=== PATIENT | male | born 1995 | race African-American/Black ===

== ENCOUNTER 2016-11-29 18:41 | Emergency (ER) | payer OTHER ==
[~2016-11-29] VITALS: Ht 167.6 cm; Wt 68.0 kg
[2016-11-29 18:45] VITALS: Ht 167.6 cm; Wt 68.0 kg
[2016-11-29] MEDS ORDERED: IBUPROFEN 200 MG TAB PO ONE (19:30)
--- NOTE | 2016-11-29 20:22 | RADRPT ---
PROCEDURE: US Scrotum. CLINICAL INDICATION: Scrotal palpable lesion. TECHNIQUE: Multiple sonographic images of the scrotal region were obtained utilizing a linear arra y transducer with grayscale and color-flow and pulsed Doppler imaging. The images were reviewed on a high-resolution PACS workstation. COMPARISON: No prior studies are available for comparison. FINDINGS: The right testis measures 4.2 93.1 x 2.6 cm. The left testis measures 4.3 x 2.3 x 3.0 cm. There is no intratesticular mass. There are benign right epididymal cysts measuring 1.7 cm and 0.9 cm. The epididymi are otherwise no rmal. In the superior lateral aspect of the right side of the scrotum there is an extratesticular heteroge neous mass measuring 1.5 x 1.3 x 2.5 cm. There is no other mass. There is normal flow to both testes demonstrated with color Doppler and pulsed Doppler sonography. There is no right hydrocele. There is a small left hydrocele. There is no varicocele. The scrotal wall is unremarkable. IMPRESSION: 1. Benign right epididymal cyst measuring 1.7 cm and 0.9 cm. 2. Heterogeneous extratesticular mass in the superior lateral aspect of the right side of the scrot um measuring 1.5 x 1.3 x 2.5 cm. Since this is extratesticular, it is probably benign. Differentia l diagnosis includes epididymal adenomatoid tumor and scrotal hematoma. Clinical correlation is adv ised. 3. Small left hydrocele. 4. Otherwise unremarkable study. RPTAT: QQ .Michael Daniels MD, Date Time Electronically viewed and signed by .Michael Daniels MD, MD on 11/29/2016 20:22 .R/
--- NOTE | 2016-11-29 20:49 | ERD ---
ER Documentation Chief Complaint Date/Time DATE: 11/29/16 TIME: 20:43 Chief Complaint Pt reports raised tender area to r groin HPI This pleasant 21-year-old male patient presents to emergency department today with complaint of right scrotal mass,. Patient reports mass is painful and is having difficulty ambulating, symptoms started 3-4 days ago and he has been using Neosporin several times a day for treatment. Patient reports history of abscess in the past treated without incision and drainage antibiotics and topical antibiotics. Patient reports that today's symptoms are worse, he denies any dysuria, testicular pain, ulcer or lesion draining purulent or bloody drainage. Patient has not tried warm compresses, denies nausea, vomiting , fever, chills, denies history of MRSA, or any comorbidities or immunosuppression.Today's pain is 8/10 on pain scale. ROS All systems reviewed and are negative except as per history of present illness. Medications Home Meds Active Scripts Ibuprofen* (Motrin*) 400 Mg Tab, 400 MG PO Q6, #30 TAB Prov:BRIAN,ROMEO 11/29/16 Clindamycin Hcl* (Cleocin*) 300 Mg Cap, 300 MG PO Q8 for 10 Days, #30 CAP Prov:BRIAN,ROMEO 11/29/16 Allergies Allergies: Coded Allergies: amoxicillin (Verified Allergy, Unknown, hives, 11/29/16) PMhx/Soc Medical and Surgical Hx: pt denies Medical Hx History of Surgery: Yes (keloid removal from ears) Anesthesia Reaction: No Hx Neurological Disorder: No Hx Respiratory Disorders: No Hx Cardiac Disorders: No Hx Psychiatric Problems: No Hx Miscellaneous Medical Probl: No Hx Alcohol Use: No Hx Substance Use: Yes (marijuana daily) Hx Tobacco Use: No Smoking Status: Current every day smoker Physical Exam Vitals Vital Signs Date Time Temp Pulse Resp B/P Pulse Ox O2 Delivery O2 Flow Rate FiO2 11/29/16 18:45 98.6 80 16 138/67 97 Vitals stable, triage notes reviewed Physical Exam Const: Well-appearing, well-nourished, well-hydrated, no acute Head: Atraumatic Eyes: Normal Conjunctiva, PERRLA, EOMI ENT: Normal External Ears, Nose and Mouth, mucous membranes moist Neck: Resp: Respirations even and unlabored, no respiratory distress Cardio: Abd: Soft, non tender, non distended. Normal bowel sounds Male genitalia: Right upper scrotal mass palpated, tender to palpation, with no spontaneous drainage to palpation. Mass measuring 2 cm x 1 cm. Testicles distended, circumcised, with no penile discharge, lesion, or ulcer. Skin: Back: Ext: Neur: Awake and alert Psych: Normal Mood and Affect Results 24 hrs Current Medications Medications (Trade) Dose Ordered Sig/Jassi Route PRN Reason Start Time Stop Time Status Last Admin Dose Admin Ibuprofen (Motrin) 400 mg ONCE ONCE PO 11/29/16 19:30 11/29/16 19:37 DC 11/29/16 20:17 Procedures/MDM PROCEDURE: US Scrotum. CLINICAL INDICATION: Scrotal palpable lesion. TECHNIQUE: Multiple sonographic images of the scrotal region were obtained utilizing a linear array transducer with grayscale and color-flow and pulsed Doppler imaging. The images were reviewed on a high-resolution PACS workstation. COMPARISON: No prior studies are available for comparison. FINDINGS: The right testis measures 4.2 93.1 x 2.6 cm. The left testis measures 4.3 x 2.3 x 3.0 cm. There is no intratesticular mass. There are benign right epididymal cysts measuring 1.7 cm and 0.9 cm. The epididymi are otherwise normal. In the superior lateral aspect of the right side of the scrotum there is an extratesticular heterogeneous mass measuring 1.5 x 1.3 x 2.5 cm. There is no other mass. There is normal flow to both testes demonstrated with color Doppler and pulsed Doppler sonography. There is no right hydrocele. There is a small left hydrocele. There is no varicocele. The scrotal wall is unremarkable. IMPRESSION: 1. Benign right epididymal cyst measuring 1.7 cm and 0.9 cm. 2. Heterogeneous extratesticular mass in the superior lateral aspect of the right side of the scrotum measuring 1.5 x 1.3 x 2.5 cm. Since this is extratesticular, it is probably benign. Differential diagnosis includes epididymal adenomatoid tumor and scrotal hematoma. Clinical correlation is advised. 3. Small left hydrocele. 4. Otherwise unremarkable study. Electronically viewed and signed by .Michael Daniels MD, on 11/29/2016 20:22 Procedure note Abscess Incision and Drainage by me: Location: superior lateral aspect of the right side of the scrotum there is an extratesticular heterogeneous mass measuring 1.5 x 1.3 x 2.5 cm Anesthesia: Local 1% Lidocaine without epinephrine Technique: Disrupted loculations w/ instrumentation Packin cm nonmedicated sterile packing Complications: Neurovascularly intact post procedure 48 hour wound check. Scar minimization instructions given. This 21-year-old male patient presents to emergency department for painful right scrotal mass. Patient has history of skin infection in the same location treated with antibiotics. Infected lymph node is not suspected. small abscess without cellulitis status post simple incision and drainage by myself see above. Wound packing with 2 cm nonmedicated packing. Patient's skin symptoms have stabilized while they have been evaluated in the department and are appropriate for outpatient care and work up. Exam and w/u not consistent w/ sepsis, deep space infection, or foreign body patient will be discharged home with clindamycin 300 mg 1 tab p.o. every 8 hours 10 days, Motrin for pain, return to emergency department in 48 hours for treatment reevaluation and packing removal, return to emergency department as needed for increased redness, pain, fever. I feel the patient is stable for discharge at this time. I have discussed results, examination findings, the treatment plan with the patient and family present prior to discharge. Indications for emergent reevaluation, side effects of medication were also discussed. All questions were answered. Patient verbalizes understanding and agrees with plan of care.. Departure Diagnosis: Primary Impression: Acute abscess Condition: Good Patient Instructions: Abscess, Incision And Drainage Additional Instructions: Thank you for for coming to [facility] for your care today. Please ask your nurse or provider if you have questions about your care today and do not leave until all your questions have been answered. Please use any medications given as directed and follow-up with your doctor (or the doctor you were referred to) in the next 2-3 days. If you do not have a primary care doctor you may [place] [facility] [place] ([place] You may also use motrin and tylenol as needed for fever and/or pain unless instructed otherwise by your provider or nurse. Indications for more urgent follow-up have been discussed, but you may return to the Emergency Department at ANY time for any worrisome or worsening symptoms. If you have abdominal pain, please know that no test or exam you received is perfect and you should follow up within 8 hours for continued pain. If you had any imaging studies today, such as an X-Ray or CT Scan, these studies will be reviewed later by a radiologist. You will be called if there are important findings that were not identified today, so make sure the contact information you provided at registration is correct. If you received any narcotic pain control medicine today, such as Vicodin, Morphine or Dilaudid, your coordination and judgment may be affected for a number of hours. Please do not drive or operate heavy machinery, and you may want someone to assist you at home. If you were given a prescription for narcotic medication, be aware that it is very addictive- use sparingly and only if necessary. ROMEO TORRES Nov 29, 2016 20:49
[2016-11-29] MEDS ORDERED: CLIN300C2 PO (22:33)
[2016-11-29] MEDS ORDERED: IBUP400T22 PO (22:33)
[2016-11-29 22:42] VITALS: BP 120/65; PULSE 67; RESP 16; TEMP 98.9
== END 2016-11-29 22:44 | disposition home or self-care (01) ==
LOC: FTE 18:41
DX: N49.2 Inflammatory disorders of scrotum (principal); F17.210 Nicotine dependence, cigarettes, uncomplicated
CPT/HCPCS: 76870

== ENCOUNTER 2016-12-02 17:27 | Emergency (ER) | payer OTHER ==
[~2016-12-02] VITALS: Wt 64.0 kg
[~2016-12-02 17:27] MED LIST: CLIN300C2 PO; IBUP400T22 PO
--- NOTE | 2016-12-02 18:21 | ERD ---
ER Documentation Chief Complaint Date/Time DATE: 12/02/16 TIME: 18:10 Chief Complaint RIGHT INGUINAL GROIN ABSCESS I&D NEEDS WOUND RECHECK HPI 21 year old male presents to the ER for a wound check of an abscess that was incised and drained last friday. Patient was given keflex and bactrim, patient states he is complaint with medications. He states swelling has decreased and pain is resolved. He denies fevers. He states he has removed the packing ROS All systems reviewed and are negative except as per history of present illness. Medications Home Meds Active Scripts Ibuprofen* (Motrin*) 400 Mg Tab, 400 MG PO Q6, #30 TAB Prov:BRIAN,ROMEO 11/29/16 Clindamycin Hcl* (Cleocin*) 300 Mg Cap, 300 MG PO Q8 for 10 Days, #30 CAP Prov:BRIAN,ROMEO 11/29/16 Allergies Allergies: Coded Allergies: amoxicillin (Verified Allergy, Unknown, hives, 11/29/16) PMhx/Soc History of Surgery: Yes (keloid removal from ears) Anesthesia Reaction: No Hx Neurological Disorder: No Hx Respiratory Disorders: No Hx Cardiac Disorders: No Hx Psychiatric Problems: No Hx Miscellaneous Medical Probl: No Hx Alcohol Use: No Hx Substance Use: Yes (marijuana daily) Hx Tobacco Use: No Smoking Status: Never smoker Physical Exam Vitals Vital Signs Date Time Temp Pulse Resp B/P Pulse Ox O2 Delivery O2 Flow Rate FiO2 12/02/16 17:36 98.9 85 20 119/85 98 Physical Exam Const: WD/WN, NAD Head: Atraumatic Eyes: Normal Conjunctiva ENT: Normal External Ears, Nose and Mouth. Neck: Full range of motion..~ No meningismus. Resp: Clear to auscultation bilaterally Cardio: Regular rate and rhythm, no murmurs Abd: Soft, non tender, non distended. Normal bowel sounds Skin: no erythema, mild indurated papule on the right groin. no purulence Back: No midline or flank tenderness Ext: No cyanosis, or edema Neur: Awake and alert Psych: Normal Mood and Affect Procedures/MDM 21 year old male presents to the ER for a wound check of an abscess that was incised and drained last friday. Patient was given keflex and bactrim, patient states he is complaint with medications. He states swelling has decreased and pain is resolved. On examination there was no evidence of purulence, I discussed the patient that he is stable to be discharged home to continue his antibiotics for the next 6 days. Discussed return to the ER for any worsening symptoms. He understands and agrees with plan Departure Diagnosis: Primary Impression: Abscess Condition: Stable Patient Instructions: Wound Care Additional Instructions: Take all medicines as directed. Return to this facility if you are not improving as expected. EVA FELDMAN PA-C Dec 02, 2016 18:20
== END 2016-12-02 18:26 | disposition home or self-care (01) ==
LOC: FTE 17:27
DX: Z48.01 Encounter for change or removal of surgical wound dressing (principal)
CPT/HCPCS: 99281